=== PATIENT | male | born 1990 | race Hispanic/Latino ===

== ENCOUNTER 2021-04-19 09:55 | Emergency (ER) | payer OTHER ==
[2021-04-19] MEDS ORDERED: Ketorolac Tromethamine 30 MG/ML VIAL ONE (10:18)
[2021-04-19] MEDS ORDERED: Ondansetron ODT 4 MG TAB ONE (10:18)
== END 2021-04-19 10:45 | disposition home or self-care (01) ==
LOC: CSHERS 09:55
DX: S06.0X9A Concussion with loss of consciousness of unspecified duration, initial encounter (principal); W00.0XXA Fall on same level due to ice and snow, initial encounter
CPT/HCPCS: 70450; 96372; J1885; Q0162